=== PATIENT | male | born 1975 | race Caucasian/White ===

== ENCOUNTER 2016-09-24 14:53 | Emergency (ER) | payer MEDICAID ==
[2016-09-24 16:05] LABS: Urine Bilirubin Negative (NEGATIVE); Urine Ketone Negative (NEGATIVE); Urine Nitrite Negative (NEGATIVE); Urine Protein Negative (NEGATIVE); Urine Urobilinogen Normal (NORMAL)
[2016-09-24 16:12] LABS: Urine Appearance Clear; Urine Blood 10 /ul (NEGATIVE); Urine Color Yellow; Urine RBC 0-5 /hpf (0-5); Urine WBC None Seen /hpf (0-5)
[2016-09-24 16:13] LABS: Urine Bacteria TRACE; Urine Mucus Moderate - 2+
[2016-09-24] MEDS ORDERED: ONDANSETRON HCL/PF 2 MG/ML VIAL IV ONE (16:25)
[2016-09-24] MEDS ORDERED: KETOROLAC TROMETHAMINE 30 MG/ML VIAL IV ONE (16:25)
[2016-09-24] MEDS ORDERED: NORMAL SALINE 1,000 ML IV ONE (16:25)
--- OUTSIDE RECORDS SUMMARY | 2016-09-24 16:40 | XMS REPORT | Continuity of Care Document ---
:1975 Author Organization [facility] ([facility]) Address [place] [address] Phone [phone] Care Team Providers Name Role Phone Alvin Solano Primary Care Provider [phone] Source Comments This disclosure is being made pursuant to the Care Everywhere program, applicable federal and state laws, and may not contain all informaitonavailable regarding this patient.[facility] ([facility]) Active Allergies and Adverse Reactions No Known Allergies Current Medications No known medications Active Problems Problem Noted Date Obesity 06/13/2012 Nicotine addiction 06/13/2012 Immunization history incomplete 06/13/2012 Nephrolithiasis 06/30/2011 Kidney stone 06/29/2011 Immunizations Name Dates Previously Given Next Due Pneumococcal Polysaccharide, PPSV23 (Pneumovax 23) 06/13/2012 Tdap 06/13/2012 Social History Tobacco Use Types Packs/Day Years Used Date Current Every Day Smoker Cigarettes 1 20 Smokeless Tobacco: Never Used Tobacco Cessation:Ready to Quit: Yes; Counseling Given: Yes Comments: Alcohol Use Drinks/Week oz/Week Comments No Last Filed Vital Signs Vital Sign Reading Time Taken Blood Pressure 138/80 06/13/2012 9:50 AM FORENSIC NURSE Pulse 82 06/13/2012 9:50 AM FORENSIC NURSE Temperature 37 C (98.6 F) 06/13/2012 9:50 AM FORENSIC NURSE Respiratory Rate 16 06/13/2012 9:50 AM FORENSIC NURSE Height 1.778 m (5' 10") 06/13/2012 8:14 AM FORENSIC NURSE Weight 105.144 kg (231 lb 12.8 oz) 06/13/2012 9:50 AM FORENSIC NURSE Body Mass Index 33.26 06/13/2012 9:50 AM FORENSIC NURSE Oxygen Saturation 94% 06/13/2012 9:50 AM FORENSIC NURSE Plan of Care Patient Goal Type Goal Weight Weight below 95 kg (210 lb) Lifestyle Quit smoking / using tobacco Health Maintenance Due Date Last Done Comments Hepatitis B Vaccine (1 of 3 - Primary Series) 1975 Lipid Disorder Screening 1994 MMR Vaccine 1994 Influenza Vaccine: Seasonal (#1) 12/02/2015 Td Vaccine 06/13/2022 06/13/2012 Pneumococcal Vaccine Completed 06/13/2012 Tdap Vaccine Completed 06/13/2012 Results from Last 3 Months Not on file
[2016-09-24] MEDS ORDERED: KETOROLAC TROMETHAMINE 30 MG/ML VIAL ONE (16:45)
[2016-09-24] MEDS ORDERED: ONDANSETRON HCL/PF 2 MG/ML VIAL ONE (16:45)
[2016-09-24 17:07] VITALS: BP 117/90
--- NOTE | 2016-09-24 17:32 | ERNOTE ---
ER Male HPI Date of Service: 09/24/16 Stated Complaint: KIDNEY STONE ER Male: other - Flank pain Time Seen by Provider: 09/24/16 16:23 Source: patient, RN notes reviewed Exam Limitations: no limitations Immunizations: IMMUNIZATION HX Immunizations Up to Date Yes History of Influenza Vaccine More Information Required Hx Pneumococcal Vaccination More Information Required Allergies/Adverse Reactions: Allergies No Known Allergies Allergy (Verified 09/24/16 15:15) Home Medications: HOME MEDICATIONS Omeprazole [Prilosec] 40 mg PO DAILY PRN 09/08/13 [Last Taken 12/29/13] - Pain Score Pain Score #1 Pain Score: 4 - Left flank - History of Present Illness Narrative: 41 y/o male ambulatory to the ED for left flank pain that began earlier this afternoon. Has had kidney stones in the past and believes this is what is causing his pain today. Date (Duration): 09/24/16 Timing: Present: constant Quality: Present: moderate Onset Location: Present: left flank Radiation: Present: LLQ Activities at Onset: Present: none Prior Abdominal Problems: Present: similar symptoms Associated Symptoms: Present: nausea. Absent: fever/chills, diaphoresis, vomiting, dysuria, urinary frequency Prior Treatment: Absent: recently seen Review of Systems - Review of Systems Constitutional: Absent: recent illness, fever, chills, malaise EYE: Present: no symptoms reported ENT: Present: no symptoms reported Respiratory: Absent: shortness of breath, cough Cardiology: Absent: chest pain, palpitations Gastrointestinal/Abdominal: Present: nausea, abdominal pain. Absent: vomiting, diarrhea, constipation, eating less, drinking less Genitourinary: Absent: frequency, dysuria, hematuria, decreased urinary output Musculoskeletal: Present: back pain. Absent: neck pain Skin: Absent: rash, lesions Neurological: Absent: headache, dizziness/light-headedness Endocrine: Present: no symptoms reported Hematologic/Lymphatic: Present: no symptoms reported Psych: Present: no symptoms reported - Patient's Past Medical History Patient History - Medical: GERD, Kidney stone Patient History - Cardiac/Respiratory: No pertinent hx Patient History - Cancer: No Hx of Cancer Patient History - Surgical Procedures: Urology - cystoscopy, ureteral stent placement, lithotripsy Patient History - Other: None - Family History Mother Family History - Medical: No pertinent hx Family History - Cardiac/Respiratory: No pertinent hx Father Family History - Medical: No pertinent hx Family History - Cardiac/Respiratory: No pertinent hx - Social History Living Situations: spouse Abuse History: No History of abuse Psych History: No pertinent hx Alcohol Use: occasionally Drug Use: none, marijuana - Immunizations Immunizations Up to Date: Yes Hx Pneumococcal Vaccination: More Information Required to Determine History of Influenza Vaccine: More Information Required to Determine Physical Exam - Physical Exam General Appearance: Present: wd/wn, alert, no apparent distress Neck: Present: normal inspection, nontender, supple, full range of motion Respiratory: Present: no respiratory distress, normal breath sounds, no accessory muscle use, lungs clear Cardiovascular/Chest: Present: regular rate, rhythm, no murmur, normal peripheral pulses Gastrointestinal/Abdominal: Present: normal bowel sounds, nondistended, soft, no organomegaly, tenderness - mild, LLQ. Absent: guarding, rebound, mass Back Exam: Present: normal range of motion, no vertebral tenderness, CVA tenderness (L). Absent: CVA tenderness (R) Extremity Exam: Present: normal inspection, normal range of motion, no edema Neurological Exam: Present: alert, oriented, normal mood/affect, no motor/ sensory deficits Skin Exam: Present: normal color, warm/dry ED Progress - Results and Orders Patient's Lab Results:: I have reviewed the patient's lab results. - Vital Signs Patient's Vital Signs:: I have reviewed the patient's vital signs. Vital Signs: Vital Signs 09/24/16 09/24/16 15:11 17:07 Temperature 37.3 C 37.3 C Pulse Rate 85 80 Respiratory 22 H 22 H Rate Blood Pressure 115/91 117/90 O2 Sat by Pulse 99 99 Oximetry - CT/Ultrasound CT/Ultrasound Narrative: Technique: CT Abdomen/Pelvis W/O Contrast Findings: Exam is limited due to lack of IV and oral contrast. There is a 1 mm intrarenal calcification on the left. No other nephrolithiasis or obstructive uropathy seen bilaterally. There are calcified granulomas within the liver and spleen. Calcified gallstone within a noninflamed gallbladder. Solid abdominal organs are otherwise unremarkable. Bladder is unremarkable. No intestinal obstruction. The appendix is normal. No free air or free fluid. No loculated fluid collections. No pericolonic inflammatory change. No inguinal adenopathy. Lung bases demonstrate some granulomatous change. Osseous structures are intact. IMPRESSION: 1. No obstructing nephrolithiasis bilaterally. No acute intra-abdominal or pelvic process. Electronically signed by Kalpesh Ortiz M.D.. - Progress/Reassessment Chief Complaint: Genitourinary Problem Progress:: Improved Departure Clinical Impression: Acute flank pain - Departure Disposition: Home self-care Condition: Good Instructions: Flank Pain, [id number] Referrals: Milton Zarate MD [Primary Care Provider] -
[2016-09-24 17:44] LABS: Hematocrit 42.7 % (42.0-52.0); Hemoglobin 14.4 gm/dL (13.5-18.0); Mean Cell Volume 82.8 fl (78-100); Mean Corpuscular Hemoglobin 27.9 pg (27-31); Mean Corpuscular Hgb Conc 33.7 g/dl (32-36); Mean Platelet Volume 9.6 fl (6.0-9.5); Neutrophil # 6.3 K/mm3 (1.3-6.0); Neutrophil % 64.9 % (42-75.0); Platelet Count 279 K/mm3 (150-450); Red Blood Count 5.16 M/mm3 (4.7-6.0); Red Cell Distribution Width 13.8 % (11.5-14.0); White Blood Count 9.6 K/mm3 (4.0-10.5)
[2016-09-24 18:01] LABS: Albumin * 3.7 gm/dl (3.4-5.0); Anion Gap 11.1 mmol/L (6.8-13.8); BUN/Creatinine Ratio 11.7 (9.0-21.6); Bilirubin, Total 0.3 mg/dL (0.0-1.1); Ca. Corrected For Albumin 8.5 mg/dL (8.4-10.2); Calcium * 8.6 mg/dL (7.9-10.9); Carbon Dioxide 29.6 mmol/L (24-32.6); Potassium 3.7 mmol/L (3.4-4.6); Total Protein 7.4 gm/dL (6.2-8.2)
== END 2016-09-24 18:33 | disposition home or self-care (01) ==
LOC: ER 14:53
DX: R10.9 Unspecified abdominal pain (principal); Z87.442 Personal history of urinary calculi